=== PATIENT | male | born 1995 | race Caucasian/White ===

== ENCOUNTER 2017-04-03 19:09 | Emergency (ER) | payer MEDICAID ==
[2017-04-03 20:53] VITALS: BP 153/71
== END 2017-04-03 20:53 | disposition home or self-care (01) ==
LOC: ED 19:09
DX: S43.102A Unspecified dislocation of left acromioclavicular joint, initial encounter (principal); X58.XXXA Exposure to other specified factors, initial encounter; Y93.23 Activity, snow (alpine) (downhill) skiing, snowboarding, sledding, tobogganing and snow tubing; Y99.8 Other external cause status; Y92.89 Other specified places as the place of occurrence of the external cause